=== PATIENT | female | born 1945 | race Caucasian/White ===

== ENCOUNTER 2023-10-07 01:15 | Inpatient (IN) | payer MEDICARE, BC ==
[2023-10-07] MEDS ORDERED: Albuterol/Ipratropium 3.0-0.5 MG/3 ML Neb Soln NEB ONE (01:37)
[2023-10-07] MEDS ORDERED: Albuterol/Ipratropium 3.0-0.5 MG/3 ML Neb Soln ONE (01:37)
[2023-10-07 01:52] LABS: BASOPHILS ABSOLUTE AUTO 0.02 K/uL (0.02-0.10); BASOPHILS PERCENT AUTO 0.3 % (0.0-0.5); EOSINOPHILS ABSOLUTE AUTO 0.03 K/uL (0.04-0.40); EOSINOPHILS PERCENT AUTO 0.5 % (1.0-5.0); HEMATOCRIT 35.2 % (37.0-47.0); HEMOGLOBIN 12.6 g/dL (11.5-16.5); LYMPHOCYTES ABSOLUTE AUTO 0.82 K/uL (1.50-4.00); LYMPHOCYTES PERCENT AUTO 12.7 % (20.0-40.0); MEAN CORPUSCULAR HEMOGLOBIN 31.2 pg (27.0-32.0); MEAN CORPUSCULAR HGB CONC 35.8 g/dL (31.0-35.0); MEAN CORPUSCULAR VOLUME 87 fL (76-96); MEAN PLATELET VOLUME 8.7 fL (6.0-10.0); MONOCYTES ABSOLUTE AUTO 0.76 K/uL (0.20-0.80); MONOCYTES PERCENT AUTO 11.7 % (3.0-10.0); NEUTROPHILS ABSOLUTE AUTO 4.85 K/uL (2.00-7.50); NEUTROPHILS PERCENT AUTO 74.8 % (45.0-70.0); PLATELET COUNT,PLT 184 K/uL (150-500); RED BLOOD CELL COUNT 4.04 M/uL (3.80-5.80); RED CELL DISTRIBUTION WIDTH 12.8 % (11.0-16.0); WHITE BLOOD CELL COUNT,WBC 6.5 K/uL (4.0-11.0)
[2023-10-07] MEDS ORDERED: methylPREDNISolone Sodium Succinate 40 MG/1 ML SDV IVPUSH ONE (02:03)
[2023-10-07] MEDS ORDERED: Sodium Chloride 0.9% 10 ML Syringe FLUSH PRN (02:04)
[2023-10-07] MEDS ORDERED: methylPREDNISolone Sodium Succinate 40 MG/1 ML SDV ONE (02:10)
[2023-10-07 02:12] LABS: ALBUMIN 3.7 g/dL (3.4-5.0); BILIRUBIN TOTAL 0.3 mg/dL (0.0-1.0); BUN/CREATININE RATIO 20.3 (6-25); CALCIUM 8.5 mg/dL (8.5-10.1); CARBON DIOXIDE,CO2 27.3 mmol/L (21.0-32.0); CREATININE 0.79 mg/dL (0.55-1.02); EST CRCL DRUG DOSING (CG) 52.81 mL/min; MAGNESIUM 1.8 mg/dL (1.8-2.4); POTASSIUM,K 4.3 mmol/L (3.5-5.1); PROTEIN TOTAL,TP 7.3 g/dL (6.4-8.2)
[2023-10-07 02:35] LABS: CORONAVIRUS COVID-19 NAA NEGATIVE (NEGATIVE); INFLUENZA A NAA NEGATIVE (NEGATIVE); INFLUENZA B NAA NEGATIVE (NEGATIVE); RESPIRATORY SYNCYTIAL VIR NAA POSITIVE (NEGATIVE)
[2023-10-07] MEDS ORDERED: Ondansetron 4 MG/2 ML SDV IV PRN (03:19)
[2023-10-07] MEDS ORDERED: Acetaminophen 325 MG Tab PO PRN (03:19)
[2023-10-07] MEDS: Sodium Chloride 0.9% 1,000 ML IV SCH ×2 (04:57→18:23)
[2023-10-07] MEDS: Albuterol/Ipratropium 3.0-0.5 MG/3 ML Neb Soln NEB PRN ×4 (06:26→20:23)
[2023-10-07] MEDS ORDERED: Non-Formulary Medication 1 Each (Calcium Carbonate/Vitamin D3 [Calcium 600 + Vit D Tablet] PO SCH (08:00)
[2023-10-07] MEDS: methylPREDNISolone Sodium Succinate 40 MG/1 ML SDV IVPUSH SCH (08:41)
[2023-10-07] MEDS: Enoxaparin 40 MG/0.4 ML Syringe SUBCUT SCH (08:43)
[2023-10-07] MEDS: guaiFENesin 600 MG Tab.ER PO SCH ×2 (08:45→20:06)
[2023-10-07] MEDS: Multivitamin Tab PO SCH (08:45)
[2023-10-07] MEDS: Phenytoin 100 MG Cap.ER PO SCH ×3 (08:45→20:12)
[2023-10-07] MEDS: Calcium Carbonate/Vitamin D3 1500 MG-400 Units Tab PO SCH (08:46)
[2023-10-08] MEDS: Albuterol/Ipratropium 3.0-0.5 MG/3 ML Neb Soln NEB PRN ×4 (05:37→23:46)
[2023-10-08] MEDS: Sodium Chloride 0.9% 1,000 ML IV SCH ×2 (07:57→23:45)
[2023-10-08] MEDS: Multivitamin Tab PO SCH (07:58)
[2023-10-08] MEDS: Phenytoin 100 MG Cap.ER PO SCH ×2 (07:58→19:40)
[2023-10-08] MEDS: Calcium Carbonate/Vitamin D3 1500 MG-400 Units Tab PO SCH (07:59)
[2023-10-08] MEDS: guaiFENesin 600 MG Tab.ER PO SCH ×2 (07:59→19:41)
[2023-10-08] MEDS: Enoxaparin 40 MG/0.4 ML Syringe SUBCUT SCH (07:59)
[2023-10-08] MEDS: methylPREDNISolone Sodium Succinate 40 MG/1 ML SDV IVPUSH SCH (07:59)
[2023-10-08 08:42] LABS: BASOPHILS ABSOLUTE AUTO 0.01 K/uL (0.02-0.10); BASOPHILS PERCENT AUTO 0.2 % (0.0-0.5); EOSINOPHILS ABSOLUTE AUTO 0.08 K/uL (0.04-0.40); EOSINOPHILS PERCENT AUTO 1.4 % (1.0-5.0); HEMATOCRIT 34.7 % (37.0-47.0); HEMOGLOBIN 12.1 g/dL (11.5-16.5); LYMPHOCYTES ABSOLUTE AUTO 1.34 K/uL (1.50-4.00); LYMPHOCYTES PERCENT AUTO 22.8 % (20.0-40.0); MEAN CORPUSCULAR HEMOGLOBIN 31.2 pg (27.0-32.0); MEAN CORPUSCULAR HGB CONC 34.9 g/dL (31.0-35.0); MEAN CORPUSCULAR VOLUME 89 fL (76-96); MEAN PLATELET VOLUME 8.6 fL (6.0-10.0); MONOCYTES ABSOLUTE AUTO 0.78 K/uL (0.20-0.80); MONOCYTES PERCENT AUTO 13.2 % (3.0-10.0); NEUTROPHILS ABSOLUTE AUTO 3.68 K/uL (2.00-7.50); NEUTROPHILS PERCENT AUTO 62.4 % (45.0-70.0); PLATELET COUNT,PLT 162 K/uL (150-500); RED BLOOD CELL COUNT 3.88 M/uL (3.80-5.80); RED CELL DISTRIBUTION WIDTH 13.2 % (11.0-16.0); WHITE BLOOD CELL COUNT,WBC 5.9 K/uL (4.0-11.0)
[2023-10-08 08:55] LABS: ALBUMIN 3.4 g/dL (3.4-5.0); ANION GAP 10.6 mmol/L (5.0-15.0); BILIRUBIN TOTAL 0.4 mg/dL (0.0-1.0); BUN/CREATININE RATIO 14.9 (6-25); CALCIUM 8.6 mg/dL (8.5-10.1); CARBON DIOXIDE,CO2 28.9 mmol/L (21.0-32.0); CREATININE 0.67 mg/dL (0.55-1.02); EST CRCL DRUG DOSING (CG) 62.27 mL/min; POTASSIUM,K 3.5 mmol/L (3.5-5.1); PROTEIN TOTAL,TP 6.8 g/dL (6.4-8.2)
[2023-10-09] MEDS: methylPREDNISolone Sodium Succinate 40 MG/1 ML SDV IVPUSH SCH (08:24)
[2023-10-09] MEDS: guaiFENesin 600 MG Tab.ER PO SCH (08:24)
[2023-10-09] MEDS: Phenytoin 100 MG Cap.ER PO SCH (08:24)
[2023-10-09] MEDS: Calcium Carbonate/Vitamin D3 1500 MG-400 Units Tab PO SCH (08:25)
[2023-10-09] MEDS: Multivitamin Tab PO SCH (08:25)
[2023-10-09] MEDS: Enoxaparin 40 MG/0.4 ML Syringe SUBCUT SCH (08:25)
[2023-10-09] MEDS: Albuterol/Ipratropium 3.0-0.5 MG/3 ML Neb Soln NEB PRN (08:31)
[2023-10-09 14:30] VITALS: BP 163/100; PULSE 89
== END 2023-10-09 14:30 | disposition home or self-care (01) | DRG 866 ==
LOC: LB.ED 01:20 → LB.MS 02:55 → UNDOADMIN 02:55 → LB.MS 03:18
PROVIDERS: ADMIT Nurse Practitioner Family; ATTEND Nurse Practitioner Family
DX: B33.8 Other specified viral diseases (principal); R09.02 Hypoxemia; B97.4 Respiratory syncytial virus as the cause of diseases classified elsewhere; J44.9 Chronic obstructive pulmonary disease, unspecified; Z66 Do not resuscitate; Z90.710 Acquired absence of both cervix and uterus; Z79.899 Other long term (current) drug therapy; Z98.890 Other specified postprocedural states; Z11.52 Encounter for screening for COVID-19; Z79.51 Long term (current) use of inhaled steroids
CPT/HCPCS: 0241U; 36415; 71045; 80053; 83735; 83880; 85025; 94640; 96374; 99222; 99232; 99238; 99285-25; A9270-GY; J1650; J2920; J7030; J7620

== ENCOUNTER 2025-07-05 10:41 | Emergency (ER) | payer MEDICARE, BC ==
[2025-07-05 11:27] LABS: BASOPHILS ABSOLUTE AUTO 0.03 K/uL (0.02-0.10); BASOPHILS PERCENT AUTO 0.5 % (0.0-0.5); EOSINOPHILS ABSOLUTE AUTO 0.15 K/uL (0.04-0.40); EOSINOPHILS PERCENT AUTO 2.4 % (1.0-5.0); LYMPHOCYTES ABSOLUTE AUTO 1.63 K/uL (1.50-4.00); LYMPHOCYTES PERCENT AUTO 26.0 % (20.0-40.0); MEAN PLATELET VOLUME 8.9 fL (6.0-10.0); MONOCYTES ABSOLUTE AUTO 0.52 K/uL (0.20-0.80); MONOCYTES PERCENT AUTO 8.3 % (3.0-10.0); NEUTROPHILS ABSOLUTE AUTO 3.93 K/uL (2.00-7.50); NEUTROPHILS PERCENT AUTO 62.8 % (45.0-70.0); PLATELET COUNT,PLT 255 K/uL (150-500); RED BLOOD CELL COUNT 3.95 M/uL (3.80-5.80); RED CELL DISTRIBUTION WIDTH 12.7 % (11.0-16.0); WHITE BLOOD CELL COUNT,WBC 6.3 K/uL (4.0-11.0)
[2025-07-05 11:41] LABS: INR 1.1 (1.0-3.5)
[2025-07-05 11:42] LABS: A/G RATIO 1.1 (0.8-2.0); ALANINE AMINOTRANSFERASE,ALT 35.0 U/L (12-78); ASPARTATE AMNIOTRANSFERASE,AST 32.0 U/L (15-37); BILIRUBIN TOTAL 0.2 mg/dL (0.0-1.0); BLOOD UREA NITROGEN,BUN 23.0 mg/dL (8-26); CARBON DIOXIDE,CO2 31.6 mmol/L (21.0-32.0); CHLORIDE,CL 106.0 mmol/L (98-107); CREATININE 0.81 mg/dL (0.55-1.02); EST CRCL DRUG DOSING (CG) 48.08 mL/min; ESTIMATED GFR 73.0 mL/min (>60); GLUCOSE RANDOM 145.0 mg/dL (74-100); POTASSIUM,K 4.4 mmol/L (3.5-5.1); PROTEIN TOTAL,TP 7.2 g/dL (6.4-8.2); SODIUM,NA 143.0 mmol/L (136-145)
[2025-07-05] MEDS ORDERED: Sodium Chloride 0.9% 10 ML Syringe FLUSH PRN (11:50)
[2025-07-05 13:04] VITALS: BP 155/71; PULSE 71
== END 2025-07-05 13:44 ==
LOC: LB.ED 10:41
DX: I63.9 Cerebral infarction, unspecified (principal); Z90.710 Acquired absence of both cervix and uterus
CPT/HCPCS: 36415; 70450; 80053; 82947; 83735; 85025; 85610; 93005; 99285; A0425; A0428